=== PATIENT | male | born 1985 | race Caucasian/White ===

== ENCOUNTER 2017-07-31 19:02 | Emergency (ER) | payer SELFPAY ==
[~2017-07-31] VITALS: Ht 177.8 cm; Wt 80.0 kg
[~2017-07-31 19:02] MED LIST: CARB200 PO
[2017-07-31] MEDS ORDERED: EPIT200T PO (19:14)
[2017-07-31 19:15] VITALS: BP 139/88; PULSE 91; RESP 16; O2SAT 98
[2017-07-31] MEDS ORDERED: carBAMazepine 200 MG TAB PO ONE (19:30)
[2017-07-31] MEDS ORDERED: SODIUM CHLORIDE 0.9% FLUSH 10 ML FLUSH IVF PRN (19:30)
[2017-07-31] MEDS ORDERED: LORazepam 2 MG/ML VIAL IVS ONE (19:30)
[2017-07-31 19:31] VITALS: O2SAT 88
[2017-07-31 19:34] VITALS: O2SAT 98
--- NOTE | 2017-07-31 19:42 | PD ---
HPI Chief Complaint: Seizure Time Seen by Provider: 19:17 Travel History International Travel<30 days: No Contact w/Intl Traveler<30days: No Traveled to known affect area: No History of Present Illness HPI Patient is a 32 year old male, with history of seizures, who comes in after a seizure today. Per EMS, patient was witnessed to have a tonic clonic seizure and fell into some boxes, not hitting his head. He is still slightly postictal , but is becoming more awake and aware. He says he takes Tegretol 400mg twice a day, but he did not take it this morning. He says he has the pills at home. He says he has a "slight" headache. He denies feeling ill. He denies fever or chills. He denies chest pain or SOB. He denies neck pain or back pain. Severity is mild. PFSH Past Medical History Diminished Hearing: No Neurologic: Yes Seizures: Yes Tetanus Vaccination: > 5 Years Influenza Vaccination: Yes Past Surgical History Surgical History: No Previous Surgery Social History Alcohol Use: No Tobacco Use: No Substance Use: No Allergies-Medications (Allergen,Severity, Reaction): Coded Allergies: No Known Allergies (Unverified Allergy, Unknown, 07/31/17) Reported Meds & Prescriptions Reported Meds & Active Scripts Active Reported Epitol (Carbamazepine) 200 Mg Tab 400 Mg PO BID Review of Systems Except as stated in HPI: all other systems reviewed are Neg General / Constitutional: No: Fever, Chills Eyes: No: Blurred Vision HENT: Positive: Headaches Cardiovascular: No: Chest Pain or Discomfort Respiratory: No: Shortness of Breath Gastrointestinal: No: Nausea, Vomiting, Abdominal Pain Musculoskeletal: No: Myalgias, Edema Skin: No Rash, No Change in Pigmentation Neurologic: Positive: Seizures Physical Exam Narrative GENERAL: Awake and alert, in no acute distress. SKIN: Focused skin assessment warm/dry. HEAD: Atraumatic. Normocephalic. EYES: Pupils equal and round. No scleral icterus. ENT: Mucous membranes pink and moist. NECK: Trachea midline. No JVD. No cervical spine tenderness. CARDIOVASCULAR: Regular rate and rhythm. No murmur appreciated. RESPIRATORY: No accessory muscle use. Clear to auscultation. Breath sounds equal bilaterally. GASTROINTESTINAL: Abdomen soft, non-tender, nondistended. MUSCULOSKELETAL: No obvious deformities. No clubbing. No cyanosis. No edema. No thoracic or lumbar spine tenderness to palpation. NEUROLOGICAL: Awake and alert. No obvious cranial nerve deficits. Motor grossly within normal limits. Normal speech. PSYCHIATRIC: Appropriate mood and affect; insight and judgment normal. Data Data Last Documented VS Vital Signs Date Time Temp Pulse Resp B/P (MAP) Pulse Ox O2 Delivery O2 Flow Rate FiO2 07/31/17 20:30 70 16 105/60 (75) 100 Nasal Cannula 3.00 Orders Orders Complete Blood Count With Diff (07/31/17 19:23) Carbamazepine (Tegretol) (07/31/17 19:23) Blood Glucose (07/31/17:23) Ecg Monitoring (07/31/17:) Iv Access Insert/Monitor (07/31/17) Oximetry (07/31/17:) Comprehensive Metabolic Panel (07/31/17:23) Sodium Chloride 0.9% Flush (Ns Flush) (07/31/17 19:30) Lorazepam Inj (Ativan Inj) (07/31/17 19:30) Carbamazepine (Tegretol) (07/31/17 19:30) Electrocardiogram (07/31/17 18:18) Labs Laboratory Tests Test 07/31/17 19:40 White Blood Count 7.3 TH/MM3 Red Blood Count 5.16 MIL/MM3 Hemoglobin 15.6 GM/DL Hematocrit 44.9 % Mean Corpuscular Volume 87.1 FL Mean Corpuscular Hemoglobin 30.2 PG Mean Corpuscular Hemoglobin Concent 34.7 % Red Cell Distribution Width 13.0 % Platelet Count 202 TH/MM3 Mean Platelet Volume 8.4 FL Neutrophils (%) (Auto) 86.3 % Lymphocytes (%) (Auto) 8.1 % Monocytes (%) (Auto) 4.6 % Eosinophils (%) (Auto) 0.4 % Basophils (%) (Auto) 0.6 % Neutrophils # (Auto) 6.3 TH/MM3 Lymphocytes # (Auto) 0.6 TH/MM3 Monocytes # (Auto) 0.3 TH/MM3 Eosinophils # (Auto) 0.0 TH/MM3 Basophils # (Auto) 0.0 TH/MM3 CBC Comment DIFF FINAL Differential Comment Blood Urea Nitrogen 6 MG/DL Creatinine 0.86 MG/DL Random Glucose 87 MG/DL Total Protein 7.1 GM/DL Albumin 3.8 GM/DL Calcium Level 8.9 MG/DL Alkaline Phosphatase 69 U/L Aspartate Amino Transf (AST/SGOT) 18 U/L Alanine Aminotransferase (ALT/SGPT) 28 U/L Total Bilirubin 0.2 MG/DL Sodium Level 139 MEQ/L Potassium Level 3.5 MEQ/L Chloride Level 105 MEQ/L Carbon Dioxide Level 24.9 MEQ/L Anion Gap 9 MEQ/L Estimat Glomerular Filtration Rate 103 ML/MIN Carbamazepine (Tegretol) Level 2.7 MCG/ML [facility] Medical Decision Making Medical Screen Exam Complete: Yes Emergency Medical Condition: Yes Medical Record Reviewed: Yes Differential Diagnosis medication noncompliance vs breakthrough seizure vs electrolyte abnormalities Narrative Course Patient is a 32-year-old male who comes in after seizure today. Exam shows no neurologic abnormalities. IV established, labs sent. Labs show Tegretol level is low. Patient was given 1 mg of Ativan. Given a dose of his Tegretol. He says that he has a Tegretol at home. He is advised to take his medication as prescribed. Advised follow-up with neurology. Advised to return to the ED as needed for any worsening symptoms. He was observed in the ED for several hours without further seizure activity. Diagnosis Primary Impression: Seizure Patient Instructions: General Instructions, Recurrent Seizures in Adults (ED) Additional Instructions: Make sure you take your medication as prescribed. Follow-up with neurology. Return to the ED as needed for any worsening symptoms. Disposition: 01 DISCHARGE HOME Condition: Stable Modesta Hernandez MD Jul 31, 2017 19:42
[2017-07-31 20:02] LABS: AUTOMATED NEUTROPHIL # 6.3 TH/MM3 (1.8-7.7); BASOPHIL % 0.6 % (0.0-2.0); EOSINOPHIL % 0.4 % (0.0-4.0); HEMATOCRIT 44.9 % (39.0-51.0); HEMOGLOBIN 15.6 GM/DL (13.0-17.0); LYMPH % 8.1 % (9.0-44.0); LYMPHOCYTE # 0.6 TH/MM3 (1.0-4.8); MEAN CELL VOLUME 87.1 FL (80.0-100.0); MEAN CORPUSCULAR HEMOGLOBIN 30.2 PG (27.0-34.0); MEAN CORPUSCULAR HGB CONC 34.7 % (32.0-36.0); MEAN PLATELET VOLUME 8.4 FL (7.0-11.0); MONO % 4.6 % (0.0-8.0); MONOCYTE # 0.3 TH/MM3 (0-0.9); NEUT % 86.3 % (16.0-70.0); PLATELET COUNT 202 TH/MM3 (150-450); RED BLOOD COUNT 5.16 MIL/MM3 (4.50-5.90); WHITE BLOOD COUNT 7.3 TH/MM3 (4.0-11.0)
[2017-07-31 20:25] LABS: ALBUMIN 3.8 GM/DL (3.4-5.0); AST (GOT) 18 U/L (15-37); BICARBONATE 24.9 MEQ/L (21.0-32.0); BLOOD UREA NITROGEN 6 MG/DL (7-18); CALCIUM 8.9 MG/DL (8.5-10.1); CHLORIDE 105 MEQ/L (98-107); CREATININE 0.86 MG/DL (0.60-1.30); GLOMERULAR FILTRATION RATE 103 ML/MIN (>89); GLUCOSE,RANDOM 87 MG/DL (74-106); SODIUM (NA) 139 MEQ/L (136-145)
[2017-07-31 20:26] LABS: ALT (GPT) 28 U/L (12-78)
[2017-07-31 20:28] LABS: ALKALINE PHOSPHATASE 69 U/L (45-117); CARBAMAZEPINE (TEGRETOL) 2.7 MCG/ML (4.0-12.0); TOTAL BILIRUBIN ADULT 0.2 MG/DL (0.2-1.0); TOTAL PROTEIN 7.1 GM/DL (6.4-8.2)
[2017-07-31 20:30] VITALS: BP 105/60; PULSE 70; RESP 16; O2SAT 100
[2017-07-31 22:00] VITALS: BP_SYST 110; BP_SYST 114; BP_DIAS 60; BP_DIAS 70; PULSE 87; RESP 16; O2SAT 98
[2017-08-01] VITALS: BP 110/70; PULSE 69; RESP 16; O2SAT 98
[2017-08-01 01:08] VITALS: BP 113/63
--- NOTE | 2017-08-01 13:44 | EKG ---
Date Performed: 07/31/2017 Time Performed: 18:18:12 PTAGE: 32 years EKG: Sinus rhythm INDETERMINATE AXIS ATYPICAL ECG PREVIOUS TRACING : 07/26/2015 13.31 Since the previous tracing, no significant change noted DOCTOR: Vernon Verduzco Interpretating Date/Time 08/01/2017 13:42:23
== END 2017-08-01 01:09 | disposition home or self-care (01) ==
LOC: NEPC 19:02
DX: R56.9 Unspecified convulsions (principal); R51 Headache; Z79.899 Other long term (current) drug therapy
CPT/HCPCS: 80053; 80156; 85025; 93005; 96374; 99284; J2060